=== PATIENT | male | born 1985 | race Caucasian/White ===

== ENCOUNTER 2020-12-30 23:23 | Emergency (ER) | payer OTHER, SELFPAY ==
[2020-12-30 23:29] VITALS: BP 136/80; PULSE 86; O2SAT 96
== END 2020-12-31 00:29 | disposition left against medical advice (07) ==
PROVIDERS: Emergency Provider Emergency Medicine
DX: F11.23 Opioid dependence with withdrawal (principal)

== ENCOUNTER 2020-12-31 02:09 | Emergency (ER) | payer OTHER, SELFPAY ==
[2020-12-31 02:49] VITALS: BP 106/67; PULSE 71; RESP 18; TEMP 36.6; O2SAT 97; BMI 25.7
--- NOTE | 2020-12-31 07:37 | ED.GENADULT ---
HPI - General Adult General Chief complaint: ETOH/Substance Use Stated complaint: Seeking detox Time Seen by Provider: 12/31/20 07:14 Source: patient Mode of arrival: ambulatory Limitations: no limitations History of Present Illness HPI narrative: 35-year-old male who presents emergency department requesting evaluation for heroin detox. Patient states that he uses heroin daily. He states that he usually injects 20 dollars worth of heroin multiple times a day. He states that he last used 1/2 of a 20 dollar dose yesterday at 4:00 p.m.. He stated he injected this dose into both arms. He states that he wants to stop using heroin and is interested in getting into a detox program. He currently states that he is withdrawing from heroin and complains of stomach cramping, bone pain, diarrhea and fatigue. He states that he has not been ill in any other way. He denied fever, chills, cough, chest pain, shortness of breath. He states that he has been in a detox program the past has been treated with methadone. He states that he was on Suboxone 4 years ago but was kicked out of the program has a continue to use Related Data Allergies Allergy/AdvReac Type Severity Reaction Status Date / Time naproxen [NAPROXEN] AdvReac Unknown UPSET Unverified 04/06/20 16:50 [place] Review of Systems Review of Systems: Yes all other systems are reviewed and are negative [facility] Past Medical History [facility] Narrative: Past medical history: None past surgical history: None social history: Patient smokes 4-5 cigarettes per day times 15 years. He states that he rarely drinks alcohol. Patient states that he uses heroin daily and he estimates that he uses at 1 g per day. Social History Social History Advance Directives: No Advance Directives Information Provided: No Physical Exam Vital Signs: Vital Signs: Last Vital Signs Temp 98.9 F 12/31/20 07:49 Pulse 78 12/31/20 07:49 Resp 16 12/31/20 07:49 BP 101/55 L 12/31/20 07:49 Pulse Ox 99 12/31/20 07:49 Body Mass Index 25.7 Const: General: cooperative and other (Unkempt) Orientation/consciousness: oriented to person and oriented to place Limitations: no limitations HENMT: Head: Yes normal to inspection, Yes normocephalic and Yes atraumatic Ears: external ears normal General nose exam: Normal external nose present Face and sinus: Yes normal facial exam Mouth: Normal oral and palatal mucosa present Throat: Yes posterior oropharynx normal Eyes: Periorbital: periorbital findings normal Eyelids: Yes eyelids normal Conjunctivae: conjunctivae normal Sclerae: sclerae normal Corneas: corneas normal Pupils: Equal, round and reactive pupils present Direct Ophthalmoscopy: normal light reflex Neck: Neck: Yes full ROM, Yes no lymphadenopathy, Yes no meningeal signs, Yes trachea midline and Yes supple Chest: Chest palpation & inspection: normal inspection of the chest and normal palpation of entire chest wall Resp: Effort & Inspection: normal respiratory effort and able to speak in complete sentences Auscultation: clear to auscultation bilaterally Cardio: Rate: regular rate Rhythm: regular rhythm Heart sounds: S1 normal heart sound present, S2 normal heart sound present and no murmurs GI: Inspection: Yes normal to inspection Palpation (GI): Soft to palpation, nontender, no guarding, not rigid and No hepatosplenomegaly present : General: Yes no CVA tenderness Back/Spine/Pelvis: Back: no CVA tenderness Cervical Spine: normal cervical lordosis Thoracic/Lumbar Spine: thoracic and lumbar spine normal to inspection Skin: Other: Track vernon on the arms, no erythema or evidence of cellulitis in the areas where he recently injected Neuro: General: oriented to person, oriented to place and no meningeal signs Cranial nerves: Yes CN's II-XII intact bilaterally and Yes Equal, round and reactive pupils present Cognition (Neuro): normal cognition Motor exam (neuro): 5/5 motor strength present throughout Extrem: General: Yes normal to inspection and Yes full ROM Psych: Mental Status: mental status grossly normal Speech and movement: Normal speech and movement present Affect: normal affect Attitude: cooperative Thought process: Normal thought process present Thought content: Normal thought content present Course Course Course Narrative: 35-year-old male who presents emergency department for evaluation of opiate withdrawal and requesting evaluation to get in to detox program for his open use disorder. Vital signs are stable. Patient's physical examination was unremarkable. I did order laboratory evaluation. I will get a care team consult. Patient's withdrawal symptoms were treated with clonidine 0.1 mg every 2 hours as needed. He was also given Ativan 1 mg orally for nausea and anxiety and Tylenol 975 mg orally for his withdrawal pain. 0944: Patient's laboratory evaluation revealed an elevated AST and ALT of 122 and 215. Alcohol levels was below detectable limits. COVID-19 was negative. The patient was seen by our care team counselor. Apparently the patient wanted to be committed to a 90 day program through a Section 35. He was given information on how to apply for a self Section 35 by the care team counselor. The patient then left the emergency department but I believe that he was not aware that he needed to wait for paperwork. Also, since he eloped prior to receiving his discharge papers, I was not able to give him an intranasal Narcan rescue pack. Medical Decision Making Lab Data Result diagrams: 12/31/20 07:45 12/31/20 07:45 Labs: Lab Results 12/31/20 12/31/20 12/31/20 Range/Units 07:41 07:45 07:45 WBC 10.3 (4.8-10.8) X10*3/uL RBC 5.15 (4.60-5.80) X10*6/uL Hgb 14.3 (14.0-18.0) g/dl Hct 44.0 (42-52) % MCV 85.4 (80-98) fL MCH 27.8 (27.0-33.0) pg MCHC 32.5 (31.0-36.0) g/dl RDW 14.9 (11.0-16.0) % Plt Count 228 (160-400) X10*3/uL MPV 9.5 (9.4-12.4) fL Immature Gran % (Auto) 0.4 (0.0-0.4) % Neut % (Auto) 53.9 (45-73) % Lymph % (Auto) 33.1 (20-40) % [place] % (Auto) 9.3 (2-11) % Eos % (Auto) 2.9 (0-4) % Baso % (Auto) 0.4 (0-2) % Lymph # (Auto) 3.4 (1.2-4.9) X10*3/uL [place] # (Auto) 1.0 (0.1-1.2) X10*3/uL Eos # (Auto) 0.3 (0.0-0.4) X10*3/uL Baso # (Auto) 0.0 (0.0-0.2) X10*3/uL Abs Immat Gran (auto) 0.04 H (0.00-0.03) X10*3/uL Absolute Neuts (auto) 5.5 (2.0-8.3) X10*3/uL Absolute Nucleated RBC 0.000 (0.0-0.012) X10*3/uL Nucleated RBC % (auto) 0.0 (0.0-0.2) /100WBC Sodium 138 (135-145) mmol/L Potassium 4.3 (3.3-5.1) mmol/L Chloride 105 (96-108) mmol/L Carbon Dioxide 26 (22-29) mmol/L Anion Gap 11 L (12-20) BUN 18 H (9-16) mg/dL Creatinine 1.03 (0.5-1.4) mg/dL Estim Creat Clear Calc 85.4 Estimated GFR > 60 Random Glucose 97 (60-115) mg/dL Calcium 8.9 (8.4-10.2) mg/dL Total Bilirubin 0.7 (0.0-1.0) mg/dL AST 122 H (5-37) U/L ALT 215 H (0-40) U/L Alkaline Phosphatase 78 (39-117) U/L Total Protein 6.6 (6.5-8.0) g/dL Albumin 3.8 (3.5-5.0) g/dL Urine Opiates Screen POSITIVE H (Not Detect) Ur Barbiturates Screen Not Detected (Not Detect) Ur Phencyclidine Scrn Not Detected (Not Detect) Ur Amphetamines Screen Not Detected (Not Detect) U Benzodiazepines Scrn Not Detected (Not Detect) Urine Cocaine Screen POSITIVE H (Not Detect) U Marijuana (THC) Screen Not Detected (Not Detect) Ethyl Alcohol mg/dL COVID-19 ([facility]) (Negative) COVID-19 Clin Com 12/31/20 12/31/20 Range/Units 07:45 07:45 WBC (4.8-10.8) X10*3/uL RBC (4.60-5.80) X10*6/uL Hgb (14.0-18.0) g/dl Hct (42-52) % MCV (80-98) fL MCH (27.0-33.0) pg MCHC (31.0-36.0) g/dl RDW (11.0-16.0) % Plt Count (160-400) X10*3/uL MPV (9.4-12.4) fL Immature Gran % (Auto) (0.0-0.4) % Neut % (Auto) (45-73) % Lymph % (Auto) (20-40) % [place] % (Auto) (2-11) % Eos % (Auto) (0-4) % Baso % (Auto) (0-2) % Lymph # (Auto) (1.2-4.9) X10*3/uL [place] # (Auto) (0.1-1.2) X10*3/uL Eos # (Auto) (0.0-0.4) X10*3/uL Baso # (Auto) (0.0-0.2) X10*3/uL Abs Immat Gran (auto) (0.00-0.03) X10*3/uL Absolute Neuts (auto) (2.0-8.3) X10*3/uL Absolute Nucleated RBC (0.0-0.012) X10*3/uL Nucleated RBC % (auto) (0.0-0.2) /100WBC Sodium (135-145) mmol/L Potassium (3.3-5.1) mmol/L Chloride (96-108) mmol/L Carbon Dioxide (22-29) mmol/L Anion Gap (12-20) BUN (9-16) mg/dL Creatinine (0.5-1.4) mg/dL Estim Creat Clear Calc Estimated GFR Random Glucose (60-115) mg/dL Calcium (8.4-10.2) mg/dL Total Bilirubin (0.0-1.0) mg/dL AST (5-37) U/L ALT (0-40) U/L Alkaline Phosphatase (39-117) U/L Total Protein (6.5-8.0) g/dL Albumin (3.5-5.0) g/dL Urine Opiates Screen (Not Detect) Ur Barbiturates Screen (Not Detect) Ur Phencyclidine Scrn (Not Detect) Ur Amphetamines Screen (Not Detect) U Benzodiazepines Scrn (Not Detect) Urine Cocaine Screen (Not Detect) U Marijuana (THC) Screen (Not Detect) Ethyl Alcohol < 10 mg/dL COVID-19 ([facility]ATH[facility]) Negative (Negative) COVID-19 Clin Com See Note Discharge Plan Discharge Clinical Impression: Heroin use disorder, moderate, Heroin withdrawal Patient Disposition: Elopement Interventions: ED Discharge Assessment Last Done: 12/31/20 08:10 Discharge Date/Time: 12/31/20 08:12
[2020-12-31] MEDS: LORazepam 1 MG TABLET PO (07:41)
[2020-12-31] MEDS: Acetaminophen 325 MG TABLET 975 MG PO (07:41)
--- NOTE | 2020-12-31 07:44 | PC.NURSE ---
pt seen by provider, here for detox. reports recent heroin use late last night. has been resting comfortably in recliner. given po meds, tolerating po w/o issue. no evident s/s of withdrawal. attempting blood labs at this time. pt concerned for breakfast. wctm.
[2020-12-31 07:49] VITALS: BP 101/55; PULSE 78; RESP 16; TEMP 37.2; O2SAT 99
[2020-12-31 07:49] LABS: MANUAL DIFF FLAG NO
[2020-12-31 07:52] VITALS: PULSE 78
[2020-12-31 07:52] LABS: Basophils Percent Auto 0.4 % (0-2); Eosinophils Absolute Auto 0.3 X10*3/uL (0.0-0.4); Eosinophils Percent Auto 2.9 % (0-4); Hemoglobin 14.3 g/dl (14.0-18.0); Imm Gran Abs Auto 0.04 X10*3/uL (0.00-0.03); Imm Gran Pct Auto 0.4 % (0.0-0.4); Lymphocytes Absolute Auto 3.4 X10*3/uL (1.2-4.9); Lymphocytes Percent Auto 33.1 % (20-40); Mean Corpuscular HGB Conc 32.5 g/dl (31.0-36.0); Mean Corpuscular Hemoglobin 27.8 pg (27.0-33.0); Mean Corpuscular Volume 85.4 fL (80-98); Mean Platelet Volume 9.5 fL (9.4-12.4); Monocytes Percent Auto 9.3 % (2-11); Neutrophils Absolute Auto 5.5 X10*3/uL (2.0-8.3); Neutrophils Percent Auto 53.9 % (45-73); Platelet Count 228 X10*3/uL (160-400); Red Blood Count 5.15 X10*6/uL (4.60-5.80); Red Cell Distribution Width 14.9 % (11.0-16.0); White Blood Count 10.3 X10*3/uL (4.8-10.8)
[2020-12-31 08:07] LABS: COVID-19 Test Negative (Negative)
--- NOTE | 2020-12-31 08:08 | PC.NURSE ---
Patient asked this RN to used the bathroom. Pt ambulating steady gate to the bathroom- per EMT that was nearby, pt was seen leaving the facility. ED Doc made aware.
[2020-12-31 08:09] LABS: Ethanol < 10 mg/dL
[2020-12-31 08:11] LABS: Amphetamine Screen Urine Not Detected (Not Detect); Barbiturates, Urine Not Detected (Not Detect); Benzodiazepines Screen Urine Not Detected (Not Detect); Cannabinoid Screen Urine Not Detected (Not Detect); Cocaine Screen Urine POSITIVE (Not Detect); Opiate Screen Urine POSITIVE (Not Detect); Phencyclidine Screen Urine Not Detected (Not Detect)
--- NOTE | 2020-12-31 08:13 | MHC.RECOVSUP ---
Recovery Support note: This bid writer met with patient to discuss his substance use and treatment options. Patient reports he has been using heroin IV for a long time and he wants to get into a 90 day program through [facility]. This bid writer explained to patient that the Section 35 program he is describing can only be obtained through a referral from court and that the courts are not open today. Patient acknowledged. Patient declined detox, stating that he can get detoxed during the Section 35. Patient asked if he could remain in the ED until tomorrow and this bid writer reported that it depends on how the day goes and that his bed may be needed for a medical patient. This bid writer offered to transport patient to [facility] for an overnight stay and patient seemed interested, however after this bid writer secured patient's spot at [facility] patient had already eloped from the facility.
[2020-12-31 08:16] LABS: Alanine Aminotransferase 215 U/L (0-40); Albumin Level 3.8 g/dL (3.5-5.0); Alkaline Phosphatase 78 U/L (39-117); Anion Gap 11 (12-20); Aspartate Amino Transferase 122 U/L (5-37); Bilirubin Total 0.7 mg/dL (0.0-1.0); Blood Urea Nitrogen 18 mg/dL (9-16); Calcium 8.9 mg/dL (8.4-10.2); Carbon Dioxide 26 mmol/L (22-29); Chloride 105 mmol/L (96-108); Creatinine Clr Calc Pharmacy 85.4; Estimated Glomerular Filt Rate > 60; Glucose Random 97 mg/dL (60-115); Potassium 4.3 mmol/L (3.3-5.1); Sodium 138 mmol/L (135-145); Total Protein 6.6 g/dL (6.5-8.0)
== END 2020-12-31 08:12 | disposition left against medical advice (07) ==
PROVIDERS: Emergency Provider Emergency Medicine Emergency Medical Services
DX: F11.23 Opioid dependence with withdrawal (principal); Z20.822 Contact with and (suspected) exposure to COVID-19
CPT/HCPCS: 36415; 80053; 80307; 82077; 85025; 87635; 99285

== ENCOUNTER 2021-03-02 00:06 | Emergency (ER) | payer OTHER, SELFPAY ==
[2021-03-02] VITALS (9 sets, daily range): BP systolic 83–130; BP diastolic 38–69; PULSE 30–116; RESP 20; TEMP 36.2–37.1; O2SAT 92–95; BMI 22.8
--- NOTE | ~2021-03-02 | XR_ITS ---
EXAMINATION: XR CHEST CLINICAL INFORMATION: Post intubation COMPARISON: None TECHNIQUE: Frontal view of the chest was obtained. FINDINGS: The endotracheal tube terminates 2.5 cm above the aliza. Enteric tube noted extending into the stomach. Cardiac leads overlie the chest. The lungs are well expanded. Perihilar opacities noted. No pleural effusion or pneumothorax. The cardiomediastinal silhouette is unremarkable for this technique. No displaced fractures are seen. XR/XR chest 1V IMPRESSION: Endotracheal tube terminates 2.5 cm above the aliza. Appearance of perihilar opacities which may simply be due to prominent central vasculature. This will be further evaluated on the subsequent CT.
--- NOTE | ~2021-03-02 | XR_ITS ---
EXAMINATION: XR TIBIA AND FIBULA, RIGHT CLINICAL INFORMATION: Tense. Discoloration. COMPARISON: None TECHNIQUE: AP and lateral views of the right tibia and fibula were obtained. FINDINGS: No fracture or cortical disruption. Appropriate alignment of the knee and ankle. The soft tissues are unremarkable. XR/XR tibia fibula RT 2V IMPRESSION: Normal right tibia and fibula.
[2021-03-02] MEDS: fentaNYL citrate/NS 1,000 MCG/100 ML PLAST..BAG 5 MCG IVCONT (00:36)
[2021-03-02] MEDS: Midazolam HCl/PF 2 MG/2 ML VIAL IVPUSH (00:37)
[2021-03-02] MEDS: propofoL 200 MG/20 ML VIAL 50 MG IVPUSH (00:38)
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
--- NOTE | 2021-03-02 00:50 | ECG_ITS ---
Test Reason : CA Blood Pressure : / mmHG Vent. Rate : 110 BPM Atrial Rate : 110 BPM P-R Int : 136 ms QRS Dur : 092 ms QT Int : 362 ms P-R-T Axes : 076 054 073 degrees QTc Int : 489 ms Artifact in tracing Sinus tachycardia cannot exclude anteroseptal infarct but could be from body habitus/lead placement Nonspecific ST and T wave abnormality Prolonged QT No previous ECGs available Referred By: Radhika Holden Electronically Signed By:ELIZABETH MCCLOUD
[2021-03-02 00:52] LABS: Basophils Absolute Auto 0.1 X10*3/uL (0.0-0.2); Basophils Percent Auto 0.2 % (0-2); Hematocrit 47.4 % (42-52); Hemoglobin 15.7 g/dl (14.0-18.0); Imm Gran Abs Auto 0.75 X10*3/uL (0.00-0.03); Imm Gran Pct Auto 2.5 % (0.0-0.4); Lymphocytes Percent Auto 16.5 % (20-40); MANUAL DIFF FLAG SCAN; Mean Corpuscular HGB Conc 33.1 g/dl (31.0-36.0); Mean Corpuscular Hemoglobin 29.7 pg (27.0-33.0); Mean Corpuscular Volume 89.8 fL (80-98); Mean Platelet Volume 9.9 fL (9.4-12.4); Monocytes Absolute Auto 3.4 X10*3/uL (0.1-1.2); NRBC Pct Auto 0.1 /100WBC (0.0-0.2); Neutrophils Absolute Auto 21.3 X10*3/uL (2.0-8.3); Neutrophils Percent Auto 69.8 % (45-73); Platelet Count 287 X10*3/uL (160-400); Red Blood Count 5.28 X10*6/uL (4.60-5.80); Red Cell Distribution Width 14.9 % (11.0-16.0); SCAN SMEAR FLAG 1
[2021-03-02 00:55] LABS: White Blood Count 30.5 X10*3/uL (4.8-10.8)
[2021-03-02 00:58] LABS: INTERNATIONAL NORM RATIO 1.4 (0.9-1.1)
[2021-03-02] MEDS: Etomidate 20 MG/10 ML VIAL 7 MG IVPUSH (01:00)
[2021-03-02 01:04] LABS: COVID-19 Test Negative (Negative)
[2021-03-02] MEDS: Rocuronium Bromide 50 MG/5 ML VIAL 100 MG IVPUSH (01:20)
[2021-03-02 01:21] LABS: Ethanol 12 mg/dL
[2021-03-02] MEDS: Piperacillin Sodium/Tazobactam 3.375 GM in 0.9 % Sodium Chloride 50 ML IV (01:31)
--- NOTE | 2021-03-02 01:38 | PC.NURSE ---
OGT placed by DEBBI Rojas.
[2021-03-02 01:39] LABS: Alanine Aminotransferase 3563 U/L (0-40); Alkaline Phosphatase 91 U/L (39-117); Anion Gap 39 (12-20); Bilirubin Total 1.4 mg/dL (0.0-1.0); Blood Urea Nitrogen 51 mg/dL (9-16); Calcium 6.3 mg/dL (8.4-10.2); Carbon Dioxide 16 mmol/L (22-29); Chloride 99 mmol/L (96-108); Estimated Glomerular Filt Rate 14; Glucose Random 97 mg/dL (60-115); Lipase 49 U/L (8-78); Magnesium 4.5 mg/dL (1.6-2.6); Potassium 7.1 mmol/L (3.3-5.1); Sodium 147 mmol/L (135-145); Total Protein 6.9 g/dL (6.5-8.0)
[2021-03-02 01:40] LABS: Lactic Acid 12.2 mmol/L (0.5-2.0)
[2021-03-02 01:44] LABS: Glucose, Whole Blood 89 mg/dL (60-115)
[2021-03-02 01:50] LABS: SLIDE REVIEW VERIFIED
[2021-03-02] MEDS: Insulin Regular, Human 100 UNIT/ML 3 ML VIAL 10 UNIT IVPUSH (01:56)
[2021-03-02 01:59] LABS: Aspartate Amino Transferase 4038 U/L (5-37)
[2021-03-02] MEDS: Calcium Gluconate/NaCl,Iso-Osm 2 GM/100 ML PLAST..BAG IV (02:00)
[2021-03-02] MEDS: Lactated Ringers 2,000 ML 999 ML IV (02:17)
--- NOTE | 2021-03-02 02:22 | PC.NURSE ---
[address] st, rr20, co2 44, bp 103/39 sat 95% on 45% vented.
--- NOTE | 2021-03-02 02:43 | PC.NURSE ---
bp 106/42 hr 115 sat 93% on vent
[2021-03-02 02:49] LABS: Reflex Lactate? Lactic Acid Added
--- NOTE | 2021-03-02 02:51 | PC.NURSE ---
icu provider at bedside doppler pulses very weak to right foot. foot is cold, mottled and swollen calf.
[2021-03-02] MEDS: 0.9 % Sodium Chloride 2,000 ML 999 ML IV (03:40)
[2021-03-02] MEDS: Naloxone HCl Nasal 4 MG SPRAY 8 MG NOSTRILALT (03:41)
[2021-03-02] MEDS: propofoL 1,000 MG/100 ML VIAL 2.1 MG IVCONT (03:42)
--- NOTE | 2021-03-02 03:43 | PC.NURSE ---
pt sat 93% on 45% fio2 increased by resp to 100% and sat ow97%
--- NOTE | 2021-03-02 03:59 | W.PM.CCCN ---
History of Present Illness Data of Consult Service Date: 03/02/21 Requesting physician: Radhika Holden Primary Care Provider: Unknown Physician HPI Reason for consult: post Cardiac arrest Chief complaint: ?Status post cardiac arrest HPI: ?Majority of the history obtained from your physician reported this 35-year-old without a past medical history of knowledge, presented to the emergency room with complaints of right leg pain.? Apparently he had being in the [facility] for unknown period of time.? Upon arrival, the patient was noted to be completely wet as he appear to come out of the [place] while being under the rain, he was somewhat bradycardic with wide complex and eventually he collapsed and coded.? The patient received 10 minutes of CPR before they cover ROSC. ?Patient was intubated.? The workup reveal white count 57130, potassium above 7, creatinine above 4, COVID negative, chest x-ray negative.? Other trauma survey images were pending. We Were asked to see the patient Consul for possible admission to the ICU. ROS:? Unable to obtain, patient intubated. Past Medical History:? As above Past Surgical History: unknown Family history: ?Noncontributory Social History:? unknown CODE STATUS:? Full code Allergies: ?No known drug allergies, naproxen (upset stomach) Home Medications:? Please see [facility] rec PHYSICAL EXAM: VS: ?111/41, heart rate 114, respirations 20, temperature 97.2?.? O2 sat 93% on a Vent Skin:? Intact, no lesions, edema, erythema, clubbing or cyanosis.? No ulcers. HEENT:? Head is normocephalic, atraumatic. Buccal mucosa is moist, Neck is supple without lymphadenopathy. Cardiac:? Clear S1-S2, no murmurs rubs or gallops. Pulmonary:? Clear to auscultation, no wheezes, rales or rhonchi. Abdomen:? Protuberant, positive bowel sounds in all 4 quadrants.? Soft, nontender, no rebound or guarding.? Musculoskeletal:? Upper extremities reveal no cogwheeling on range of motion of the major joints.? Lower extremities show cold, somewhat mottled shunt and purple coloration of the right lower extremity from the metatarsal bones down into the toes in comparison to the left. ?The right calf is significantly bigger than the left, this extremities also hard, attends all the way up to the knee. Neurologic:? As above, otherwise unknown. Vascular:? 2+ pulses upper extremities only.? Lower extremity pulses were attempted with Doppler and a faint dorsal pedal is poles was obtained on the left only.? There is no palpable or Doppler pulses noted on the right lower extremity. ? SIGNIFICANT LABORATORY DATA:? As above REVIEW OF IMAGES: ?Images pending. EKG REVIEW: ?Sinus tachycardia 110 beats per minute.? No ST elevations, no depressions.? QTC 489. No comparison available. ASSESSMENT AND PLAN: 1. Status post cardiac arrest 2. Hyperkalemia 3. Acute kidney injury 4. Acute rhabdomyolysis 5. Right lower extremity pain, in other changes concerning for compartment syndrome versus arterial thrombi, underlying fracture or significant DVT causing compression in the arterial system. After assessing the patient, discussed the case with the ER physician who will be doing in general bodies [place] from head to toes, expressed my concern about the patient's right lower extremity and the possibility of underlying compartment syndrome, the need for CT, arterial ultrasound studies versus General surgery or vascular surgery if compartment syndrome is considered. The above-mentioned findings were also discussed with Dr. Gianni Mcgovern who stated the vascular surgery does not take care of this in this hospital but rather General surgery and given the current clinical suspicion, the patient may benefit from a tertiary center transfer.? He will coordinate further care at this point. 0400 patient is being transferred to [facility] Critical care time used for critical evaluation of this patient, diagnosis, treatment and coordination of care, review her records and documentation TOTAL CRITICAL CARE TIME 60 MIN . Patient's care was discussed in detail with Dr. Mcgovern.? He is aware of all the above as well as the plan of care for this patient. [facility] Social History Social History Advance Directives: No Advance Directives Information Provided: No Meds Allergies Allergy/AdvReac Type Severity Reaction Status Date / Time naproxen [NAPROXEN] AdvReac Unknown UPSET Unverified 04/06/20 16:50 STOMACHE Active Medications: Current Medications Generic Name Dose Route Start Last Admin Trade Name Freq PRN Reason Stop Dose Admin Propofol 1,000 mg in 100 mls @ 2.1 mls/hr 03/02/21 00:45 03/02/21 03:42 Diprivan IVCONT 5 mcg/kg/min .Q24H YG 2.1 mls/hr Administration Protocol 5 MCG/KG/MIN Norepinephrine Bitartrate 8 mg in 250 mls @ 0 mls/hr 03/02/21 01:15 03/02/21 01:24 Levophed IVCONT 0.08 mcg/kg/min .Q0M YG 10.5 mls/hr Administration Protocol Per Protocol Naloxone HCl 0.2 mg 03/02/21 00:29 Naloxone Hcl 0.4 Mg/Ml Vial IVPUSH Q2M PRN Excessive sedation or RR < 8 Physical Exam Vital Signs: Vital Signs: Last Vital Signs Temp 97.2 F 03/02/21 02:43 Pulse 78 03/02/21 03:42 Resp 20 03/02/21 03:18 BP 130/60 03/02/21 03:42 Pulse Ox 92 03/02/21 03:18 Body Mass Index 22.8 Results Labs CBC & Chem 7: 03/02/21 00:43 03/02/21 00:43 Labs: Short CBC 03/02/21 Range/Units 00:43 WBC 30.5 H* (4.8-10.8) X10*3/uL Hgb 15.7 (14.0-18.0) g/dl Hct 47.4 (42-52) % Plt Count 287 D (160-400) X10*3/uL BMP 03/02/21 00:43 Sodium 147 H Potassium 7.1 H* D Chloride 99 Carbon Dioxide 16 L BUN 51 H D Creatinine 4.76 H* Calcium 6.3 L D Cardiac Enzymes 03/02/21 Range/Units 00:43 Total Creatine Kinase 064538 H (38-174) U/L Liver Function 03/02/21 Range/Units 00:43 Total Bilirubin 1.4 H (0.0-1.0) mg/dL AST 4038 H (5-37) U/L ALT 3563 H (0-40) U/L Alkaline Phosphatase 91 (39-117) U/L Albumin 4.0 (3.5-5.0) g/dL
--- NOTE | 2021-03-02 04:29 | PC.NURSE ---
pt is desat to 86% and is being bagged at this time. this situation is when pt is connected to the [facility] vent pt desat. when the pt is on hh vent pt doesnt desat and sat maintained at 94-95%. bp dropping 83/39/59 pt levo increased to 1 mcg/kg/min
--- NOTE | 2021-03-02 05:22 | PC.NURSE ---
FENTENLY DRIP: Drip was started at 0035 at 50mcg/hr. pump was alarming and noticed the roller clamp was clamped off to the medication, this was discovered at 0047 that the medication was not infusing. medication was rate adjusted at this time to 25mcg/hr and infusion was running. at 0111 the drip was increased to 75mcg and at 0117 the drip was paused and never restarted. the fentanly was being interfered with the narcan the pt was receiving. at that point the pt was being sedated with propofol at 0115. bag contained 100 and 82.5 is wasted and witnessed by 2 rns. charge is aware of this.
== END 2021-03-02 04:58 | disposition short-term general hospital (02) ==
PROVIDERS: Emergency Provider Student in an Organized Health Care Education/Training Program
DX: I46.9 Cardiac arrest, cause unspecified (principal); E87.2 Acidosis; T40.1X1A Poisoning by heroin, accidental (unintentional), initial encounter; T79.A0XA Compartment syndrome, unspecified, initial encounter; M79.604 Pain in right leg; M79.605 Pain in left leg; F10.129 Alcohol abuse with intoxication, unspecified; E87.5 Hyperkalemia; Y93.9 Activity, unspecified; Y99.9 Unspecified external cause status; Y90.0 Blood alcohol level of less than 20 mg/100 ml; Y92.9 Unspecified place or not applicable
CPT/HCPCS: 31500; 36415; 71045; 73590; 80053; 82077; 82550; 82947; 83605; 83690; 83735; 85025; 85610; 86850; 86900; 86901; 87040; 87076; 87077; 87185; 87186; 87205; 87635; 93005; 94002; 94003; 96361; 96365; 96367; 96375; 99285; 99291; J0171; J0610; J2250; J2543; J3010